=== PATIENT | male | born 1955 | race Caucasian/White ===

== ENCOUNTER 2019-01-30 11:34 | Emergency (ER) | payer OTHER, SELFPAY ==
[2019-01-30 11:49] VITALS: BP 135/86; PULSE 62; RESP 14; TEMP 37.1; O2SAT 96
--- NOTE | 2019-01-30 12:37 | W.ORTHOCONSU ---
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 His left little finger slip between the guard and the blade. It caused immediate pain to the left little finger over the dorsum. He noted a piece of the finger no longer present and presented to the emergency department. In the emergency department the wound was irrigated and inspected. It showed to have a very small amount of bone within the base of the wound I was called for consultation. He reports some mild pain. He is able to fully extend and flex aphagic finger. He denies having previous injuries. He is right-hand dominant. He denies any vascular disease. He does not smoke. He has had no previous amputations or other digit injuries. He has no issues with chronic wound healing complications. Consults Consult date: 01/30/19 Requesting physician: João Nuno Assessment and Plan (1) Unspecified open wound of left little finger with damage to nail, initial encounter: Current visit: No Status: Acute Jethro is a 63-year-old who suffered an injury to the dorsum aspect of his distal left little finger. Given the loss of tissue there are very few options. While healing by secondary intention is not preferred when exposed bone is present. It can be successful if the space is small, tissue bed is viable without necrosis, and no significant medical complications prohibiting good vascularity M healing to the area. Jethro is very adamant he does not want a revision amputation if it can be avoided. I worry about the nail and how will grow back. However, there is bone still present and while there is some loss of the bone it does not appear to be complete. Given the small area, 1 cm? or less, we can try to treat this conservatively. The wound be irrigated and will be covered with Xeroform and a gauze dressing. I will see him back next week. If this is not show some signs of granulation overlying the bone and I would recommend a revision amputation shortening it to the level that it currently is at the lunula or removing the nail completely and bring it back to the eponychium. Review of Systems Review of Systems All systems reviewed & are unremarkable except as noted in HPI and below PFSH Social History Smoking/Tobacco Use Status: Never Drug use: Never Do you feel safe at home: Yes Do you feel safe in your relationship?: Yes Exam Narrative Exam Narrative: Jethro is otherwise healthy-appearing. He is in no acute distress. He is alert and oriented x3. Evaluation of the left hand shows an injury to the dorsum of the distal aspect the left little finger. There is an absence of tissue approximately 1 cm? is distal to the lunula. There is a small amount of bone seen within the base of the wound. There is no present tissue with removal of the nail plate and the sterile matrix. The wound bed is bleeding with no necrotic tissue. No gross contamination. Results Last Vital Signs Temp 37.1 C 01/30/19 11:49 Pulse 62 01/30/19 11:49 Resp 14 01/30/19 11:49 BP 135/86 01/30/19 11:49 Pulse Ox 96 01/30/19 11:49
--- NOTE | 2019-01-30 13:06 | W.ED.GENAD ---
Discharge Plan Disposition Patient Disposition: HOME Condition: Stable Discharge Details Chief Complaint: Laceration Clinical Impression: Finger laceration Primary Care Provider: Stephanie Durham ED Provider: João Nuno Home Meds and New Rx's Prescriptions: No Action No Known Home Meds RF: 0 Discharge Instructions Instructions: Finger Laceration (ED) Additional Instructions: 1. Drink plenty of fluids. 2. Continue all medications as prescribed. 3. Acetaminophen 1000mg every 4 hours (up to 5 time a day) and/or ibuprofen 600mg every 6 hours as needed for fever or pain. 4. Keep dressing intact for 2 days. Then, daily dressing changes without removing the Xeroform cover. 5. Follow-up in 5-7 days with an orthopedic physician. Return to the Emergency Department (ED) if your condition worsens, does not improve as expected, or for ANY other concerns. Specifically, return if you have new or uncontrolled pain, worsening fever, difficulty breathing, vomiting, or are unable to drink fluids. Referrals: [facility] [Provider Group] - 02/04/19 Medical Decision Making 63-year-old who presents after sustaining an avulsion laceration to his left pinky. Laceration involves the nailbed and pulp with no obvious bony exposure. Tetanus up-to-date. Bleeding controlled with direct pressure. Evaluated in the ED by orthopedics with a plan for a Xeroform/pressure dressing applied here and outpatient orthopedic follow-up in 5-7 days. Discussed plan with patient. Xeroform/pressure dressing applied. Patient discharged home with a plan for OTC analgesia and outpatient orthopedic follow-up. Pt evaluated immediately prior to discharge with improved symptoms, normal vital signs, and tolerating PO. The patient feels appropriate for discharge home. Discussed clinical/diagnostic findings. Discharged with a clear plan for outpatient follow up. Given usual and customary return instructions prior to discharge. Medical Records Medical records reviewed: Yes I reviewed the patient's medical records. HPI 63-year-old gent with an unremarkable past medical history presents after injury to his left pinky. Mr. Harkins inadvertently struck his pinky tip into a wood edger standing and avulsed laceration to tip his of his finger. Bleeding has been controlled with direct pressure. He denies any other significant injury. His tetanus status is up-to-date. On arrival he is in no distress. General Date/Time Provider Initiated Documentation: 01/30/19 12:02. Related Data Home Medications Medication Instructions Recorded Confirmed Unknown [No Known Home Meds] 01/30/19 01/30/19 Allergies Allergy/AdvReac Type Severity Reaction Status Date / Time Sulfa (Sulfonamide Allergy Intermediate Anaphylaxsi Unverified 01/30/19 11:52 Antibiotics) s General Stated Complaint: Laceration EZIO: 4 Review of Systems Constitutional Reports system reviewed and no additional complaints, except as docu [facility] Social History Smoking/Tobacco Use Status: Never Drug use: Never Do you feel safe at home: Yes Do you feel safe in your relationship?: Yes Exam Const General: cooperative and healthy appearing Resp Effort & Inspection: normal respiratory effort Skin General skin exam: no rashes or lesions noted Trauma: laceration (Tangential avulsion laceration of the left distal pinky) Neuro General: alert, awake and gait normal Extrem Other: Avulsion laceration described above. Psych Thought Process: normal Insight: insight good Judgment: judgment good Course Vital Signs Temperature 98.8 F 01/30/19 11:49 Pulse 62 01/30/19 11:49 Respiratory Rate 14 01/30/19 11:49 Blood Pressure 135/86 01/30/19 11:49 Pulse Oximetry 96 01/30/19 11:49 Temperature 98.8 F 01/30/19 11:49 Temperature Source Skin 01/30/19 11:49 Pulse 62 01/30/19 11:49 Respiratory Rate 14 01/30/19 11:49 Respiratory Effort 01/30/19 11:53 Blood Pressure 135/86 01/30/19 11:49 Blood Pressure Position Sitting 01/30/19 11:49 Pulse Oximetry 96 01/30/19 11:49 Oxygen Delivery Method Room Air 01/30/19 11:49 Oxygen Flow Rate 0 01/30/19 11:49 Pain Level 2 01/30/19 11:49
--- NOTE | 2019-01-30 13:11 | ED.GENADUL_ITS ---
Discharge Plan Disposition Patient Disposition: HOME Condition: Stable Discharge Details Chief Complaint: Laceration Clinical Impression: Finger laceration Primary Care Provider: Stephanie Durham ED Provider: João Nuno Home Meds and New Rx's Prescriptions: No Action No Known Home Meds RF: 0 Discharge Instructions Instructions: Finger Laceration (ED) Additional Instructions: 1. Drink plenty of fluids. 2. Continue all medications as prescribed. 3. Acetaminophen 1000mg every 4 hours (up to 5 time a day) and/or ibuprofen 600mg every 6 hours as needed for fever or pain. 4. Keep dressing intact for 2 days. Then, daily dressing changes without removing the Xeroform cover. 5. Follow-up in 5-7 days with an orthopedic physician. Return to the Emergency Department (ED) if your condition worsens, does not improve as expected, or for ANY other concerns. Specifically, return if you have new or uncontrolled pain, worsening fever, difficulty breathing, vomiting, or are unable to drink fluids. Referrals: [facility] [Provider Group] - 02/04/19 Medical Decision Making 63-year-old who presents after sustaining an avulsion laceration to his left pinky. Laceration involves the nailbed and pulp with no obvious bony exposure. Tetanus up-to-date. Bleeding controlled with direct pressure. Evaluated in the ED by orthopedics with a plan for a Xeroform/pressure dressing applied here and outpatient orthopedic follow-up in 5-7 days. Discussed plan with patient. Xeroform/pressure dressing applied. Patient discharged home with a plan for OTC analgesia and outpatient orthopedic follow-up. Pt evaluated immediately prior to discharge with improved symptoms, normal vital signs, and tolerating PO. The patient feels appropriate for discharge home. Discussed clinical/diagnostic findings. Discharged with a clear plan for outpatient follow up. Given usual and customary return instructions prior to discharge. Medical Records Medical records reviewed: Yes I reviewed the patient's medical records. HPI 63-year-old gent with an unremarkable past medical history presents after injury to his left pinky. Mr. Harkins inadvertently struck his pinky tip into a wood edger standing and avulsed laceration to tip his of his finger. Bleeding has been controlled with direct pressure. He denies any other significant injury. His tetanus status is up-to-date. On arrival he is in no distress. General Date/Time Provider Initiated Documentation: 01/30/19 12:02 . Related Data Home Medications Medication Instructions Recorded Confirmed Unknown [No Known Home Meds] 01/30/19 01/30/19 Allergies Allergy/AdvReac Type Severity Reaction Status Date / Time Sulfa (Sulfonamide Allergy Intermediate Anaphylaxsi Unverified 01/30/19 11:52 Antibiotics) s General Stated Complaint: Laceration EZIO: 4 Review of Systems Constitutional Reports system reviewed and no additional complaints, except as docu [facility] Social History Smoking/Tobacco Use Status: Never Drug use: Never Do you feel safe at home: Yes Do you feel safe in your relationship?: Yes Exam Const General: cooperative and healthy appearing Resp Effort & Inspection: normal respiratory effort Skin General skin exam: no rashes or lesions noted Trauma: laceration (Tangential avulsion laceration of the left distal pinky) Neuro General: alert, awake and gait normal Extrem Other: Avulsion laceration described above. Psych Thought Process: normal Insight: insight good Judgment: judgment good Course Vital Signs Temperature 98.8 F 01/30/19 11:49 Pulse 62 01/30/19 11:49 Respiratory Rate 14 01/30/19 11:49 Blood Pressure 135/86 01/30/19 11:49 Pulse Oximetry 96 01/30/19 11:49 Temperature 98.8 F 01/30/19 11:49 Temperature Source Skin 01/30/19 11:49 Pulse 62 01/30/19 11:49 Respiratory Rate 14 01/30/19 11:49 Respiratory Effort 01/30/19 11:53 Blood Pressure 135/86 01/30/19 11:49 Blood Pressure Position Sitting 01/30/19 11:49 Pulse Oximetry 96 01/30/19 11:49 Oxygen Delivery Method Room Air 01/30/19 11:49 Oxygen Flow Rate 0 01/30/19 11:49 Pain Level 2 01/30/19 11:49
[2019-01-30 13:15] VITALS: BP 135/86; PULSE 62; RESP 14; TEMP 37.1; O2SAT 96
== END 2019-01-30 13:25 | disposition home or self-care (01) ==
LOC: ER 13:32
PROVIDERS: Emergency Provider Emergency Medicine
DX: S61.217A Laceration without foreign body of left little finger without damage to nail, initial encounter (principal); W27.8XXA Contact with other nonpowered hand tool, initial encounter
CPT/HCPCS: 99253; 99282

== ENCOUNTER → 2023-07-19 00:50 | Outpatient (CLI) | payer OTHER, SELFPAY ==
--- NOTE | 2023-07-19 | DI.MRI_ITS ---
Exam(s) MR LOWER JOINT LT WO EXAM: MR LOWER JOINT LT WO CLINICAL HISTORY: LT KNEE PAIN, M25.562 [id number]. TECHNIQUE: Multiplanar multisequence MRI was performed. COMPARISON: No exams were available for comparison FINDINGS: BONES: There is no fracture or contusion pattern. JOINTS: Tricompartment degenerative changes are seen with loss/thinning of the articular cartilage, s ubchondral edema and osteophytes. The findings are most marked in the medial femoral tibial joint. There is a moderate joint effusion present. TENDONS: Extensor mechanism: Unremarkable. Medial retinaculum: Unremarkable. Lateral retinaculum: Unremarkable. Popliteus: Unremarkable. MUSCLES: Unremarkable. MENISCI: There is a tear of the posterior horn of the medial meniscus. There is degenerative signal seen in the body of the lateral meniscus. SOFT TISSUES: There is a popliteal cyst present. It measures 3.7 transverse by 2.3 AP by 5.6 cranioc audad cm. LIGAMENTS: Anterior Cruciate: Unremarkable. Posterior Cruciate: Unremarkable. Medial Collateral:There is a sprain of the MCL. Lateral Collateral: Unremarkable. OTHER: IMPRESSION: 1. Tear of the posterior horn of the medial meniscus. 2. MCL sprain. 3. Marked degenerative changes in the knee. 4. Moderate joint effusion. 5. Popliteal cyst. DATA REPOSITORY:
== END ==
PROVIDERS: Visit Provider Nurse Practitioner Family
DX: M23.229 Derangement of posterior horn of medial meniscus due to old tear or injury, unspecified knee (principal); S83.411A Sprain of medial collateral ligament of right knee, initial encounter; X58.XXXA Exposure to other specified factors, initial encounter
CPT/HCPCS: 73721

== ENCOUNTER 2023-10-16 14:27 | Outpatient (CLI) | payer OTHER, SELFPAY ==
--- NOTE | 2023-10-16 14:00 | DI.RAD_ITS ---
Exam(s) XR KNEE RT 3V AP,LAT,JEFF EXAM: XR KNEE RT 3V AP,LAT,JEFF CLINICAL HISTORY: RIGHT KNEE PAIN. TECHNIQUE: 2D digital imaging was performed. Three views. COMPARISON: No exams were available for comparison FINDINGS: BONES: No acute fracture is present. No bony destructive lesion is seen. JOINTS: Moderate to severe narrowing of the lateral femoral tibial joint space. Periarticular spurri ng. Mild spurring and patellofemoral joint. No joint effusion is seen. SOFT TISSUE: Normal. 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 DATA REPOSITORY: RADIATION DOSE DELIVERED:
== END 2023-10-16 14:28 | disposition home or self-care (01) ==
LOC: DIORS 14:28
PROVIDERS: Visit Provider Physician Assistant
DX: M17.11 Unilateral primary osteoarthritis, right knee (principal)
CPT/HCPCS: 73562